=== PATIENT | female | born 1965 | race African-American/Black ===

== ENCOUNTER 2018-02-21 19:45 | Emergency (ER) | payer SELFPAY ==
[2018-02-21] MEDS ORDERED: Morphine 4 MG/ML VIAL ONE (20:22)
[2018-02-21 20:39] LABS: Hemoglobin 13.7 g/dL (12.0-16.0); Mean Corpuscular HGB CONC 34.1 g/dL (32.0-36.0); Mean Corpuscular Hemoglobin 28.8 pg (27.0-31.0); Mean Corpuscular Volume 84.4 fL (78.0-98.0); Mean Platelet Volume 7.6 fL (7.4-10.4); Platelet Count 298 thou/uL (130-400); RBC Distribution Width 13.1 % (11.5-14.5); Red Blood Cell (RBC) Count 4.77 mill/uL (4.20-5.40)
[2018-02-21 20:49] LABS: ALT (SGPT) 12 U/L (8-55); AST (SGOT) 13 U/L (5-34); Albumin 3.7 g/dL (3.5-5.0); Alkaline Phosphatase 77 U/L (40-150); Anion Gap 15 mmol/L (10-20); BUN (Urea Nitrogen) 19 mg/dL (9.8-20.1); Bilirubin, Total 0.5 mg/dL (0.2-1.2); Calc. Creatinine Clearance 0 mL/min (70-130); Calcium 9.4 mg/dL (7.8-10.44); Carbon Dioxide 22 mmol/L (22-29); Chloride 103 mmol/L (98-107); Estimated GFR-MDRD 69; Globulin 5.4 g/dL (2.4-3.5); Glucose 127 mg/dL (70-105); Protein, Total 9.1 g/dL (6.0-8.3); Sodium 136 mmol/L (136-145)
[2018-02-21] MEDS ORDERED: Lidocaine 1% w/Epinephrine 1:100K 20 ML VIAL ONE ×2 (20:55→22:04)
[2018-02-21 21:14] LABS: Band 1 % (5-11); Eosinophils 1 % (0-10); Lymphocytes 27 % (21-51); MDiff Complete? YES; Monocytes 4 % (0-10); Neutrophil 67 % (42-75)
[2018-02-21] MEDS ORDERED: Clindamycin/D5W 900 mg/50 ml Premix Bag ONE (21:25)
[2018-02-21] MEDS ORDERED: Lidocaine 1% PF 5 ML VIAL ONE (22:03)
--- NOTE | 2018-02-25 10:53 | EKG ---
Test Reason : Blood Pressure : / mmHG Vent. Rate : 115 BPM Atrial Rate : 115 BPM P-R Int : 156 ms QRS Dur : 076 ms QT Int : 326 ms P-R-T Axes : 085 016 078 degrees QTc Int : 450 ms Sinus tachycardia Possible Left atrial enlargement Borderline ECG Confirmed by ROB LARA, DEYSI ([id number]), acquisitions editor ELIEZER MCMANUS ([id number]) on 02/25/2018 10:52:58 AM Referred By: Confirmed By:DEYSI RIVAS MD
== END 2018-02-21 23:27 | disposition home or self-care (01) ==
LOC: ERS 19:45
DX: L05.01 Pilonidal cyst with abscess (principal); F17.210 Nicotine dependence, cigarettes, uncomplicated
CPT/HCPCS: 10080; 36415; 80053; 83605; 85025; 87040; 87070; 87076; 87205; 93005; 96361; 96365; 96375; J2001; J2270; J3490

== ENCOUNTER 2018-02-22 19:22 | Emergency (ER) | payer SELFPAY ==
[2018-02-22] MEDS ORDERED: Clindamycin/D5W 900 mg/50 ml Premix Bag ONE (21:44)
[2018-02-22] MEDS ORDERED: Acetaminophen 500 MG TAB ONE (21:44)
== END 2018-02-22 23:30 | disposition home or self-care (01) ==
LOC: ERS 19:22
DX: Z48.817 Encounter for surgical aftercare following surgery on the skin and subcutaneous tissue (principal); Z48.01 Encounter for change or removal of surgical wound dressing; F17.210 Nicotine dependence, cigarettes, uncomplicated; M41.9 Scoliosis, unspecified
CPT/HCPCS: 96365; J3490

== ENCOUNTER 2018-09-06 09:06 | Outpatient (CLI) | payer OTHER ==
--- NOTE | 2018-09-06 09:50 | RAD ---
FOUR VIEWS RIGHT KNEE: Comparison: None. History: Right knee pain for two years. FINDINGS: Four views of the right knee shows no evidence of acute fracture or dislocation. No knee effusion is seen. The appears to be a loose intracapsular osseous body within the lateral compartment of the knee . IMPRESSION: Loose intracapsular osseous bodies within the right knee joint. POS: [facility]
--- NOTE | 2018-09-06 10:16 | RAD ---
LEFT KNEE 4 VIEWS: Date: 09/06/18 HISTORY: Pain. COMPARISON: None. FINDINGS: No significant joint effusion. There is a small ossified body between the medial and lateral tibial s pines. Minimal near complete narrowing with medial and patellofemoral compartment osteophyte formation. IMPRESSION: Chronic findings. No acute abnormality. Low grade degenerative changes. POS: [facility]
== END 2018-09-06 09:07 | disposition home or self-care (01) ==
LOC: BICRAD 09:06
PROVIDERS: ATTEND Family Medicine
DX: M25.562 Pain in left knee (principal); M17.12 Unilateral primary osteoarthritis, left knee; M25.762 Osteophyte, left knee; M23.41 Loose body in knee, right knee

== ENCOUNTER 2018-10-30 09:51 | Emergency (ER) | payer OTHER, SELFPAY ==
--- NOTE | 2018-10-30 10:39 | RAD ---
Exam: Left ankle 3 views: HISTORY: Left ankle pain following injury from a fall FINDINGS: Soft tissue swelling particularly laterally. Metal plate and screws stabilizing distal fibula. Arthro sis changes of the ankle joint with some minimal medial talar dome subchondral cystic changes evidence for a talar osteochondral lesion. No evidence for acute fracture or dislocation. 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 No acute fracture.
[2018-10-30] MEDS ORDERED: Ketorolac Tromethamine 30 MG/ML VIAL ONE (11:21)
== END 2018-10-30 11:39 | disposition home or self-care (01) ==
LOC: ERS 09:51
DX: M25.572 Pain in left ankle and joints of left foot (principal); F17.210 Nicotine dependence, cigarettes, uncomplicated; W01.0XXA Fall on same level from slipping, tripping and stumbling without subsequent striking against object, initial encounter
CPT/HCPCS: 96372; J1885

== ENCOUNTER 2018-11-01 18:18 | Emergency (ER) | payer OTHER, SELFPAY ==
[2018-11-01] MEDS ORDERED: Ketorolac Tromethamine 30 MG/ML VIAL ONE (19:43)
--- NOTE | 2018-11-01 20:03 | RAD ---
LEFT ANKLE THREE VIEWS: 11/01/18 HISTORY: Injury on 10/30 with continued swelling and pain. COMPARISON: 10/30/18. FINDINGS: There is persistent lateral and anterior soft tissue swelling. Metal plate and screws stabilize the d istal fibula. Arthrosis changes of the tibiotalar joint as well as the fibulotalar joint are noted. T here is some minimal lucency throughout the distal medial malleolus and distal malleolus although the se have more of an old appearance radiographically. IMPRESSION: Persistent soft tissue swelling. Prominent arthrosis changes of the ankle joint including a medial ta lar dome osteochondral lesion. Minimal linear lucencies through the distal tip of the medial malleolu s and lateral malleolus which have more of an old appearance. Given persistent pain and swelling, a follow-up CT scan or MRI study is recommended. Findings were discussed with nurse practitioner, Ligia, at 7:50 p.m. in this regard. A CT scan could be performed in the Emergency Room tonight or if the patient will return for follow-up, a nonemergent follow-up outpatient MRI of the ankle would probably be the most helpful because it would allow imag ing of soft tissues and ligamentous injury in addition to osseous abnormality. Code CR POS: [facility]
== END 2018-11-01 18:21 | disposition home or self-care (01) ==
LOC: ERS 18:18
DX: S93.402A Sprain of unspecified ligament of left ankle, initial encounter (principal); I10 Essential (primary) hypertension; F17.210 Nicotine dependence, cigarettes, uncomplicated; Z79.899 Other long term (current) drug therapy; W19.XXXA Unspecified fall, initial encounter
CPT/HCPCS: 29515; 96372; J1885

== ENCOUNTER 2018-12-04 14:27 | Emergency (ER) | payer OTHER ==
[2018-12-04 15:34] LABS: #Basophils 0.1 thou/uL (0.0-0.2); #Eosinphils 0.2 thou/uL (0.0-0.7); #Lymphocytes 3.2 thou/uL (1.20-3.40); #Monocytes 0.7 thou/uL (0.11-0.59); #Neutrophils 9.1 thou/uL (1.40-6.50); %Basophils 0.4 % (0.0-1.0); %Eosinophils 1.5 % (0.0-10.0); %Monocytes 5.4 % (0.0-10.0); %Neutrophils 68.7 % (42.0-75.0); Hemoglobin 12.8 g/dL (12.0-16.0); Mean Corpuscular HGB CONC 32.3 g/dL (32.0-36.0); Mean Corpuscular Hemoglobin 27.1 pg (27.0-31.0); Mean Corpuscular Volume 84.1 fL (78.0-98.0); Mean Platelet Volume 7.6 fL (7.4-10.4); Platelet Count 269 thou/uL (130-400); Red Blood Cell (RBC) Count 4.73 mill/uL (4.20-5.40); White Blood Cell (WBC) Count 13.2 thou/uL (4.8-10.8)
[2018-12-04 16:00] LABS: ALT (SGPT) 11 U/L (8-55); AST (SGOT) 14 U/L (5-34); Albumin 3.6 g/dL (3.5-5.0); Alkaline Phosphatase 75 U/L (40-150); Anion Gap 12 mmol/L (10-20); BUN (Urea Nitrogen) 14 mg/dL (9.8-20.1); Bilirubin, Total 0.3 mg/dL (0.2-1.2); Calc. Creatinine Clearance 0 mL/min (70-130); Calcium 9.1 mg/dL (7.8-10.44); Carbon Dioxide 24 mmol/L (22-29); Chloride 106 mmol/L (98-107); Estimated GFR-MDRD 67; Globulin 3.8 g/dL (2.4-3.5); Glucose 95 mg/dL (70-105); Lipase 5 U/L (8-78); Potassium 4.1 mmol/L (3.5-5.1); Protein, Total 7.4 g/dL (6.0-8.3); Sodium 138 mmol/L (136-145)
--- NOTE | 2018-12-04 16:03 | RAD ---
2 views chest. HISTORY: Chest pain The lungs are well aerated. No evidence of active intrathoracic disease seen. No evidence of effusion s, pneumonia or pneumothorax seen. IMPRESSION: unremarkable 2 views chest.
[2018-12-04] MEDS ORDERED: Lidocaine Viscous Sol 2% 15 ml UD Cup ONE (16:34)
[2018-12-04] MEDS ORDERED: Mag-Al 1200 mg/1200 mg/30 ML UDCUP ONE (16:35)
== END 2018-12-04 17:01 | disposition home or self-care (01) ==
LOC: ERS 14:27
DX: K21.9 Gastro-esophageal reflux disease without esophagitis (principal); F17.210 Nicotine dependence, cigarettes, uncomplicated; Z79.899 Other long term (current) drug therapy
CPT/HCPCS: 36415; 71046; 80053; 83690; 85025; 93005

== ENCOUNTER 2019-05-03 12:17 | Outpatient (CLI) | payer OTHER ==
--- NOTE | 2019-05-03 13:12 | ULT ---
US Soft Tissue Other left wrist History: Pain and swelling. Comparison: None. Findings: Real-time grayscale and color evaluation of the soft tissues of the wrist was performed. Corresponding to the abnormalities extensive synovial hypertrophy of both the extensor indices and ex tensor digitorum tendons. This extends up to the forearm. Tendons themselves are intact. Impression: High-grade synovial hypertrophy along the extensor indices and extensor digitorum tendons proximal and distal to the wrist joint extending up to the forearm.
== END 2019-05-03 12:18 | disposition home or self-care (01) ==
LOC: ULT 12:17
PROVIDERS: ATTEND Family Medicine
DX: R22.32 Localized swelling, mass and lump, left upper limb (principal); M67.232 Synovial hypertrophy, not elsewhere classified, left forearm
CPT/HCPCS: 76999

== ENCOUNTER 2022-03-23 18:27 | Emergency (ER) | payer BC, SELFPAY ==
[2022-03-23] MEDS ORDERED: HYDROcodone/Acetaminophen 7.5/325 mg Tablet ONE (19:22)
[2022-03-23] MEDS ORDERED: Ibuprofen 800 MG TAB ONE (19:23)
== END 2022-03-23 20:09 | disposition home or self-care (01) ==
LOC: ERS 18:27
DX: M25.561 Pain in right knee (principal); M25.562 Pain in left knee; I10 Essential (primary) hypertension; K21.9 Gastro-esophageal reflux disease without esophagitis

== ENCOUNTER 2022-10-05 13:19 | Emergency (ER) | payer SELFPAY | END 2022-10-05 16:36 | disposition home or self-care (01) | LOC: ERS 13:19 | DX: S83.92XA Sprain of unspecified site of left knee, initial encounter (principal); I10 Essential (primary) hypertension; K21.9 Gastro-esophageal reflux disease without esophagitis; M19.90 Unspecified osteoarthritis, unspecified site; M41.9 Scoliosis, unspecified; F17.210 Nicotine dependence, cigarettes, uncomplicated; W18.30XA Fall on same level, unspecified, initial encounter ==

== ENCOUNTER 2023-12-23 10:44 | Outpatient (CLI) | payer OTHER | END 2023-12-23 10:45 | disposition home or self-care (01) | LOC: RAD 10:44 | PROVIDERS: ATTEND Preventive Medicine Occupational Medicine | DX: Z02.71 Encounter for disability determination (principal); M41.9 Scoliosis, unspecified; M25.561 Pain in right knee; M47.816 Spondylosis without myelopathy or radiculopathy, lumbar region | CPT/HCPCS: 72100 ==

== ENCOUNTER 2025-01-30 00:40 | Emergency (ER) | payer OTHER ==
[2025-01-30] MEDS ORDERED: Lidocaine 1% PF 5 ML VIAL ONE (01:13)
== END 2025-01-30 01:45 | disposition home or self-care (01) ==
LOC: ERS 00:40
DX: S91.114A Laceration without foreign body of right lesser toe(s) without damage to nail, initial encounter (principal); I10 Essential (primary) hypertension; F17.210 Nicotine dependence, cigarettes, uncomplicated; X50.0XXA Overexertion from strenuous movement or load, initial encounter
CPT/HCPCS: 12001; 99282